=== PATIENT | male | born 2005 | race African-American/Black ===

== ENCOUNTER → 2023-10-26 | Outpatient (CLI) | payer MEDICAID ==
[~2023-10-26] VITALS: Ht 180.3 cm; Wt 109.8 kg
[~2023-10-26] MED LIST: ADERAL
== END | disposition home or self-care (01) ==
LOC: Rad HDHVI 09:02
PROVIDERS: ATTEND Internal Medicine Cardiovascular Disease
DX: R94.31 Abnormal electrocardiogram [ECG] [EKG] (principal); E78.00 Pure hypercholesterolemia, unspecified; F17.210 Nicotine dependence, cigarettes, uncomplicated
CPT/HCPCS: 93017